=== PATIENT | male | born 1995 | race African-American/Black ===

== ENCOUNTER 2022-02-07 09:20 | Emergency (ER) | payer MEDICAID ==
[~2022-02-07] VITALS: Ht 182.9 cm; Wt 55.0 kg
[2022-02-07] MEDS ORDERED: ACETAMINOPHEN 325MG TABLET PO ONE (10:15)
[2022-02-07] MEDS ORDERED: IBUPROFEN 400MG TABLET PO ONE (10:15)
[2022-02-07] MEDS ORDERED: IBUP-2028 MT (12:00)
[2022-02-07 13:07] VITALS: BP 111/75
== END 2022-02-07 13:08 | disposition home or self-care (01) ==
LOC: ER 09:20
DX: F19.10 Other psychoactive substance abuse, uncomplicated (principal); R53.1 Weakness; M79.10 Myalgia, unspecified site; E11.9 Type 2 diabetes mellitus without complications; F14.10 Cocaine abuse, uncomplicated; Z87.891 Personal history of nicotine dependence
CPT/HCPCS: 71045; 93005; 99283